=== PATIENT | female | born 1990 | race Caucasian/White ===

== ENCOUNTER 2019-02-17 12:02 | Emergency (ER) | payer BC, OTHER ==
[2019-02-17 12:10] VITALS: BP 132/87
[2019-02-17] MEDS ORDERED: PROCHLORPERAZINE EDISYLATE INJ 10 MG/2 ML VIAL IV ONE (12:24)
[2019-02-17] MEDS ORDERED: ACETAMINOPHEN 325 MG TABLET PO ONE (12:24)
[2019-02-17] MEDS ORDERED: DIPHENHYDRAMINE HCL 50 MG/ML VIAL IV ONE (12:24)
--- NOTE | 2019-02-17 12:28 | ER Document Report ---
ED Medical Screen (RME) - General Chief Complaint: Headache Stated Complaint: HEADACHE Time Seen by Provider: 02/17/19 12:24 Primary Care Provider: ODESSA LICEA MD [Primary Care Provider] - Follow up as needed TRAVEL OUTSIDE OF THE [place] IN LAST 30 DAYS: No - HPI Notes: 02/17/19 12:25 Patient is a 28-year-old female with a history of tension headaches who presents complaining of headache that started around 1030 or 11 AM this morning to the backside of her head which is where the only start. Patient states that the pain will then radiate around the sides in the top of her head thereafter. Patient states that this headache came with some blurriness in her vision, tingling of her arms bilaterally, and tingling around her lips. Patient states that the symptoms have since resolved. Patient states that she does have a history of tingling in her extremities, but the tingling on the lips is new for her which is what prompted her to get evaluated. She otherwise has no other concerns or complaints. Patient had an MRI a year ago which was unremarkable per pt. This this was not the worst headache of her life and did not start as a thunderclap. Denies any fever, head injury, neck pain, changes in speech/mentation/hearing, URI, sore throat, chest pain, palpitations, syncope, cough, shortness of breath, wheeze, dyspnea, abdominal pain, nausea/vomiting/doug rrhea, urinary retention, dysuria, hematuria, loss of control of bowel or bladder, muscle paralysis/weakness, or rash. will defer any imaging to main side provider if deemed necessary I have treated and performed a rapid initial assessment of this patient. A comprehensive ED assessment and evaluation of the patient, analysis of test results and completion of medical decision making process will be conducted by additional ED providers. PHYSICAL EXAMINATION: GENERAL: Well-appearing, well-nourished and in no acute distress. A&Ox4. Answers questions appropriately. HEAD: Atraumatic, normocephalic. Non-tender. EYES: Pupils equal round and reactive to light, extraocular movements intact, sclera anicteric, conjunctiva are normal. No nystagmus. ENT: EAC clear b/l. TM's intact b/l without erythema, fluid, or perforation. Nares patent and without discharge. oropharynx clear without exudates. No tonsilar hypertrophy or erythema. Moist mucous membranes. NECK: Normal range of motion, supple without lymphadenopathy. No rigidity/meningismus. No midline tenderness. LUNGS: Breath sounds clear to auscultation bilaterally and equal. No wheezes rales or rhonchi. HEART: Regular rate and rhythm without murmurs, rubs, gallops. ABDOMEN: Soft, nontender, nondistended abdomen. No guarding, no rebound. Normal bowel sounds present. No CVA tenderness bilaterally. Musculoskeletal: Ext b/l: FROM to passive/active. Strength 5+/5. No deficits noted. Extremities: No cyanosis, clubbing, or edema b/l. Peripheral pulses 2+. Capillary refill less than 2 seconds. NEUROLOGICAL: NIH 0. GCS 15. Cranial nerves grossly intact. Normal speech, normal gait. Normal sensory, motor exams. Reflexes 2+ b/l. MILADIS's negative. Pronator drift negative. Heel/flores, finger/nose wnl. PSYCH: Normal mood, normal affect. SKIN: Warm, Dry, normal turgor, no rashes or lesions noted. - Related Data Allergies/Adverse Reactions: codeine Allergy (Verified 07/05/17 15:58) rash Past Medical History - Social History Drug Abuse: None Pulmonary Medical History: Reports: Hx Bronchitis Renal/ Medical History: Denies: Hx Peritoneal Dialysis GI Medical History: Reports: Hx Gastroesophageal Reflux Disease Musculoskeltal Medical History: Reports Hx Musculoskeletal Deformity, Reports Hx Musculoskeletal Trauma Past Surgical History: Reports: Hx Oral Surgery - Immunizations Hx Diphtheria, Pertussis, Tetanus Vaccination: No History of Influenza Vaccine for 06/2017 - 11/2017 Season: Unknown Physical Exam - Vital signs Vitals: Temp Pulse Resp BP Pulse Ox 98.1 F 89 16 132/87 H 98 02/17/19 12:10 02/17/19 12:10 02/17/19 12:10 02/17/19 12:10 02/17/19 12:10 Course - Vital Signs Vital signs: Temp Pulse Resp BP Pulse Ox 98.1 F 89 16 132/87 H 98 02/17/19 12:10 02/17/19 12:10 02/17/19 12:10 02/17/19 12:10 02/17/19 12:10 Doctor's Discharge - Discharge Referrals: ODESSA LICEA MD [Primary Care Provider] - Follow up as needed
--- NOTE | 2019-02-17 12:53 | EKG REPORT ---
SEVERITY:- NORMAL ECG - SINUS RHYTHM : Confirmed by: Neymar Ozuna MD 17-Feb-2019 12:52:48
--- NOTE | 2019-02-17 14:48 | ER Document Report ---
ED General - General Chief Complaint: Headache Stated Complaint: HEADACHE Time Seen by Provider: 02/17/19 12:24 Primary Care Provider: ODESSA LICEA MD [Primary Care Provider] - Follow up as needed TRAVEL OUTSIDE OF THE [place] IN LAST 30 DAYS: No - HPI Notes: Patient is a 28-year-old female who presents to the emergency department for evaluation of headache, bilateral arm numbness, and perioral numbness. Started while she was at work. She was in between appointments with financial counseling here in the hospital. She states she does get tension headaches. She has had trouble with numbness in her upper extremities in the past, but not always necessarily associated with headaches. She is never had a perioral numbness before. She denied any associated nausea. She tried food and rest to see if they would help, they did not significantly help, so she presents the ED for further evaluation. She denies any fevers or sore throat. She states that when her headache was severe she did have some mild blurred vision, but this is resolved. She notes that her father of a brain aneurysm, but she had an MRI/MRA of her brain last year which was found to be normal. - Related Data Allergies/Adverse Reactions: codeine Allergy (Verified 07/05/17 15:58) rash Past Medical History - General Information source: Patient - Social History Smoking Status: Never Smoker Drug Abuse: None Family History: Arthritis, CAD, DM, Hyperlipidemia, Hypertension, Malignancy. denies: COPD, CVA, Thyroid Disfunction Patient has suicidal ideation: No Patient has homicidal ideation: No Pulmonary Medical History: Reports: Hx Bronchitis Renal/ Medical History: Denies: Hx Peritoneal Dialysis GI Medical History: Reports: Hx Gastroesophageal Reflux Disease Musculoskeletal Medical History: Reports Hx Musculoskeletal Trauma Past Surgical History: Reports: Hx Oral Surgery - Immunizations Hx Diphtheria, Pertussis, Tetanus Vaccination: No Review of Systems - Review of Systems Constitutional: No symptoms reported EENT: See HPI Cardiovascular: No symptoms reported Respiratory: No symptoms reported Gastrointestinal: No symptoms reported Genitourinary: No symptoms reported Musculoskeletal: See HPI Skin: No symptoms reported Neurological/Psychological: See HPI Physical Exam - Vital signs Vitals: Temp Pulse Resp BP Pulse Ox 98.1 F 89 16 132/87 H 98 02/17/19 12:10 02/17/19 12:10 02/17/19 12:10 02/17/19 12:10 02/17/19 12:10 - Notes Notes: Vital signs reviewed, please refer to chart. Head is normocephalic, atraumatic. Pupils equal round, reactive to light. Neck is supple without meningismus. Heart is regular rate and rhythm. Lungs are clear to auscultation bilaterally. Abdomen is soft, nontender, normoactive bowel sounds throughout. Extremities without cyanosis, clubbing. Posterior calves are nontender. Peripheral pulses are equal. Skin is warm and dry. Patient is awake, alert, oriented x3. Cranial nerves II - XII are grossly intact without focal neurological deficits. Strength is plus 5 out of 5 bilateral lower extremities. Sensation is intact. Reflexes symmetrical. Intact [id number], rapid alternating movements, [id number]. Course - Re-evaluation Re-evalutation: 02/17/19 14:45 Patient presents to the emergency department for evaluation. She was initially evaluated through triage. She was medicated with complete resolution of her symptoms. The patient has had an EMG for evaluation of her arm numbness, which she states is largely unremarkable. She was referred for possible MRI and further follow-up with neurology, but she did not pursue this. I explained to the patient that I suspect that all of her symptoms were secondary to tension. My most likely explanation for her perioral numbness with some mild hyperventilation associated with the onset of her severe headache. She states that all of her symptoms are currently resolved at this time. I will send her home with a mild muscle relaxer to see if this helps with occurrence of her headaches. She is encouraged to follow-up with her primary care physician, discuss possible referral back to neurology, and return to the ED with worsening or new concerning symptoms of any sort. - Vital Signs Vital signs: Temp Pulse Resp BP Pulse Ox 98.1 F 89 16 132/87 H 98 02/17/19 12:10 02/17/19 12:10 02/17/19 12:10 02/17/19 12:10 02/17/19 12:10 Discharge - Discharge Clinical Impression: Tension headache, Numbness of upper extremity, Perioral numbness Condition: Stable Disposition: HOME, SELF-CARE Instructions: Headache ([facility]) Additional Instructions: Rest. Take muscle relaxer as needed for tension headaches. Follow-up with your doctor in 1 to 2 weeks. You should consider pursuing a referral to neurology. Return to the emergency department with worsening or new concerning symptoms of any sort. Referrals: ODESSA LICEA MD [Primary Care Provider] - Follow up as needed
== END 2019-02-17 15:06 | disposition home or self-care (01) ==
LOC: ER 12:02
DX: G44.209 Tension-type headache, unspecified, not intractable (principal); R20.0 Anesthesia of skin; Z88.6 Allergy status to analgesic agent
CPT/HCPCS: 93005; 99284; 96374; 96375; 93010; J1200; J0780

== ENCOUNTER 2019-03-14 21:56 | Emergency (ER) | payer BC, OTHER ==
[2019-03-15 01:08] LABS: ABSOLUTE LYMPHOCYTES (AUTO) 2.4 10^3/uL (0.5-4.7); ABSOLUTE MONOCYTES (AUTO) 0.4 10^3/uL (0.1-1.4); ABSOLUTE NEUT (AUTO) 7.6 10^3/uL (1.7-8.2); BASOPHILS % (AUTO) 0.4 % (0-2); EOSINOPHILS % (AUTO) 0.1 % (0-6); HEMATOCRIT 45.5 % (36.0-47.0); HEMOGLOBIN 15.6 g/dL (12.0-15.5); LYMPHOCYTES % (AUTO) 22.8 % (13-45); MEAN CORPUSCULAR HEMOGLOBIN 31.5 pg (27.0-33.4); MEAN CORPUSCULAR HGB CONC 34.4 g/dL (32.0-36.0); MEAN CORPUSCULAR VOLUME 92 fl (80-97); MONOCYTES % (AUTO) 3.8 % (3-13); PLATELET COUNT 232 10^3/uL (150-450); RED BLOOD COUNT 4.96 10^6/uL (3.72-5.28); RED CELL DISTRIBUTION WIDTH 12.8 % (11.5-14.0); SEGMENTED NEUTROPHILS % (AUTO) 72.9 % (42-78); TOTAL CELLS COUNTED % (AUTO) 100 %; WHITE BLOOD COUNT 10.5 10^3/uL (4.0-10.5)
[2019-03-15 01:25] LABS: APPEARANCE,URINE CLEAR; BILIRUBIN,URINE NEGATIVE (NEGATIVE); COLOR,URINE YELLOW; GLUCOSE, URINE NEGATIVE (NEGATIVE); KETONES,URINE 25 mg/dL (NEGATIVE); LEUKOCYTE ESTERASE,URINE NEGATIVE (NEGATIVE); NITRITE,URINE NEGATIVE (NEGATIVE); PROTEIN,URINE NEGATIVE (NEGATIVE); UROBILINOGEN,URINE NEGATIVE mg/dL (<2.0)
--- NOTE | 2019-03-15 01:29 | ER Document Report ---
ED Psych Disorder / Suicide - General Chief Complaint: Anxiety Stated Complaint: HEART RACING Time Seen by Provider: 03/14/19 22:41 Primary Care Provider: ODESSA LICEA MD [Primary Care Provider] - Follow up as needed Mode of Arrival: Ambulatory Information source: Patient TRAVEL OUTSIDE OF THE [place] IN LAST 30 DAYS: No - HPI Patient complains to provider of: Other - Palpitation, anxiety. Onset: Yesterday Onset was: Sudden Quality of pain: No pain Severity: None Pain Level: Denies Similar symptoms previously: No Recently seen / treated by doctor: No - Related Data Allergies/Adverse Reactions: codeine Allergy (Verified 07/05/17 15:58) rash Past Medical History - Social History Smoking Status: Never Smoker Frequency of alcohol use: Social Drug Abuse: None Family History: Arthritis, CAD, DM, Hyperlipidemia, Hypertension, Malignancy. denies: COPD, CVA, Thyroid Disfunction Patient has suicidal ideation: No Patient has homicidal ideation: No Pulmonary Medical History: Reports: Hx Bronchitis Renal/ Medical History: Denies: Hx Peritoneal Dialysis GI Medical History: Reports: Hx Gastroesophageal Reflux Disease Musculoskeletal Medical History: Reports Hx Musculoskeletal Deformity, Reports Hx Musculoskeletal Trauma Past Surgical History: Reports: Hx Oral Surgery - Immunizations Hx Diphtheria, Pertussis, Tetanus Vaccination: No Review of Systems - Review of Systems Constitutional: No symptoms reported EENT: No symptoms reported Cardiovascular: No symptoms reported Respiratory: No symptoms reported Gastrointestinal: No symptoms reported Genitourinary: No symptoms reported Female Genitourinary: No symptoms reported Musculoskeletal: No symptoms reported Skin: No symptoms reported Hematologic/Lymphatic: No symptoms reported Neurological/Psychological: Anxiety. denies: Homicidal ideation, Suicidal ideation -: Yes All other systems reviewed and negative Physical Exam - Vital signs Vitals: Temp Pulse Resp BP Pulse Ox 98.1 F 81 18 121/72 98 03/14/19 22:10 03/14/19 22:10 03/14/19 22:10 03/14/19 22:10 03/14/19 22:10 Interpretation: Normal - General General appearance: Appears well, Alert - HEENT Head: Normocephalic, Atraumatic Eyes: Normal Pupils: PERRL - Respiratory Respiratory status: No respiratory distress Chest status: Nontender Breath sounds: Normal Chest palpation: Normal - Cardiovascular Rhythm: Regular Heart sounds: Normal auscultation Murmur: No - Abdominal Inspection: Normal Distension: No distension Bowel sounds: Normal Tenderness: Nontender Organomegaly: No organomegaly - Back Back: Normal, Nontender - Extremities General upper extremity: Normal inspection, Nontender, Normal color, Normal ROM, Normal temperature General lower extremity: Normal inspection, Nontender, Normal color, Normal ROM, Normal temperature, Normal weight bearing. No: Divina's sign - Neurological Neuro grossly intact: Yes Cognition: Normal Orientation: AAOx4 Liliana Coma Scale Eye Opening: Spontaneous Liliana Coma Scale Verbal: Oriented Liliana Coma Scale Motor: Obeys Commands Liliana Coma Scale Total: 15 Speech: Normal Motor strength normal: LUE, RUE, LLE, RLE Sensory: Normal - Psychological Associated symptoms: Normal affect, Normal mood - Skin Skin Temperature: Warm Skin Moisture: Dry Skin Color: Normal Course - Re-evaluation Re-evalutation: 03/15/19 03:00 Patient states she is feeling better and her anxiety has resolved. She wants to be discharged home. - Vital Signs Vital signs: Temp Pulse Resp BP Pulse Ox 97.8 F 78 18 105/73 99 03/15/19 03:18 03/15/19 03:18 03/15/19 03:18 03/15/19 03:18 03/15/19 03:18 - Laboratory Result Diagrams: 03/15/19 00:55 03/15/19 00:55 Laboratory results interpreted by me: 03/15/19 03/15/19 00:55 00:55 Hgb 15.6 H Urine Ketones 25 H - EKG Interpretation by Ct EKG shows normal: Sinus rhythm Rate: Normal Rhythm: NSR When compared to previous EKG there are: No significant change Additional EKG results interpreted by me: 03/15/19 01:40 No STEMI. Discharge - Discharge Clinical Impression: Panic attack, Panic attack as reaction to stress Condition: Stable Disposition: HOME, SELF-CARE Instructions: Panic Attack ([facility]) Additional Instructions: Please follow-up with your primary doctor on Saturday morning. Return to the emergency room if your condition worsens. Referrals: ODESSA LICEA MD [Primary Care Provider] - Follow up as needed
[2019-03-15 01:31] LABS: ALANINE AMINOTRANSFERASE 24 U/L (9-52); ALBUMIN 4.5 g/dL (3.5-5.0); ALKALINE PHOSPHATASE 75 U/L (38-126); ANION GAP 9 (5-19); ASPARTATE AMINO TRANSFERASE 26 U/L (14-36); BILIRUBIN,DIRECT 0.2 mg/dL (0.0-0.4); BILIRUBIN,TOTAL 0.9 mg/dL (0.2-1.3); BLOOD UREA NITROGEN 11 mg/dL (7-20); CALCIUM 9.6 mg/dL (8.4-10.2); CARBON DIOXIDE 26 mmol/L (22-30); CHLORIDE 104 mmol/L (98-107); GLUCOSE 97 mg/dL (75-110); SODIUM 138.9 mmol/L (137-145); TOTAL PROTEIN 7.1 g/dL (6.3-8.2)
[2019-03-15 02:30] LABS: URINE AMPHETAMINES SCREEN NEGATIVE; URINE BARBITURATES SCREEN NEGATIVE; URINE BENZODIAZEPINES SCREEN NEGATIVE; URINE COCAINE SCREEN NEGATIVE; URINE MARIJUANA (THC) SCREEN NEGATIVE; URINE METHADONE SCREEN NEGATIVE; URINE PHENCYCLIDINE SCREEN NEGATIVE
[2019-03-15 03:26] VITALS: BP 105/73
--- NOTE | 2019-03-15 09:49 | EKG REPORT ---
SEVERITY:- NORMAL ECG - SINUS RHYTHM : Confirmed by: Cristina Doe 15-Mar-2019 09:48:57
== END 2019-03-15 03:26 | disposition home or self-care (01) ==
LOC: ER 21:56
DX: F43.0 Acute stress reaction (principal); F41.9 Anxiety disorder, unspecified; Z88.6 Allergy status to analgesic agent
CPT/HCPCS: 36415; 80053; 80307; 81001; 81025; 84443; 85025; 93005; 93010; 99283

== ENCOUNTER → 2019-03-25 | Outpatient (CLI) | payer BC ==
--- NOTE | 2019-03-25 13:31 | RADIOLOGY REPORT (SQ) ---
EXAM DESCRIPTION: MRI CERVICAL SPINE WITHOUT COMPLETED DATE/TIME: 03/25/2019 1:18 pm REASON FOR STUDY: M54.12 RADICULOPATHY, CERVICAL REGION M54.12 RADICULOPATHY, CERVICAL REGION COMPARISON: None. TECHNIQUE: Sagittal and Axial imaging includes T1, T2, STIR and gradient echo sequences. LIMITATIONS: None. FINDINGS: ALIGNMENT: Normal. VERTEBRAE: Intact. BONE MARROW: Normal. No marrow replacement or reactive changes. DISCS: Normal. No significant abnormal signal or loss of height. HARDWARE: None in the spine. CORD AND BASE OF BRAIN: Normal in size and signal intensity. SOFT TISSUES: No soft tissue masses. C1-C2: No significant spinal stenosis. C2-C3: No significant spinal stenosis or exit foraminal stenosis. C3-C4: No significant spinal stenosis or exit foraminal stenosis. C4-C5: No significant spinal stenosis or exit foraminal stenosis. C5-C6: No significant spinal stenosis or exit foraminal stenosis. C6-C7: No significant spinal stenosis or exit foraminal stenosis. C7-T1: No significant spinal stenosis or exit foraminal stenosis. UPPER THORACIC: Incompletely imaged. No significant spinal stenosis or exit foraminal stenosis. OTHER: No other significant finding. IMPRESSION: NORMAL MRI CERVICAL SPINE. TECHNICAL DOCUMENTATION: JOB ID: [id number] [employer]- All Rights Reserved Reading location - IP/workstation name: [email or web address]
== END ==
LOC: RAD 12:16
PROVIDERS: ATTEND Internal Medicine
DX: M54.12 Radiculopathy, cervical region (principal); M54.2 Cervicalgia; R00.2 Palpitations
CPT/HCPCS: 72141

== ENCOUNTER → 2019-03-26 | Outpatient (CLI) | payer BC ==
--- NOTE | 2019-03-26 20:46 | XCELERA REPORT ---
[address] [address] Transthoracic Echocardiogram Report Name: MARIELY TAYLOR Age: 28 yrs Gender: Female : 1990 Patient Status: Outpatient Patient Location: RAD Study Date: 03/26/2019 01:12 PM Height: 60 in Weight: 132 lb BSA: 1.6 m2 Reason For Study: PALPATIONS Ordering Physician: ODESSA LICEA Performed By: Larisa Warren Interpretation Summary No significant post. pericardial effusion Aortic root not dilated. Aortic valve normal 3 cusps. noncor. cusp suggest mild prolapse, but no AR detected by color doppler. Mild mitral annular calcification. AML of MV is thickened and mod. prolapse but only trace MR, and small LA size. No MS, no PML prolapse. LV shows no hypertrophy, LVEF is normal at 58% but no biplane LVEF by nursing technician. Overall appears normal >55%.visually. Segmental wall motion abnormality in IVS and inferior wall is mild hypokinesis. No LV diastolic dysfunction. No LV enlargement. RH is normasl size, no TR sampled to derive RVSP to R/O pulm hypertension. Summary = mild thickened AML prolapse of the MV with trace MR physiological, and no LA enlargement. Mild hypokinesis of the IVS and Inferior wall. with visually normal LVEF. MMode/2D Measurements & Calculations RVDd: 2.9 cm LVIDd: 4.2 cm FS: 34.1 % Ao root diam: 2.8 cm IVSd: 0.81 cm LVIDs: 2.8 cm EDV(Teich): Ao root area: LVPWd: 1.1 cm 80.2 ml ESV(Teich): 6.4 cm2 29.4 ml LA dimension: 2.1 cm EF(Teich): 63.4 % LVLd ap4: 6.9 cm SV(MOD-sp4): EDV(MOD-sp4): 30.0 ml 53.0 ml LVLs ap4: 5.9 cm ESV(MOD-sp4): 23.0 ml EF(MOD-sp4): 56.6 % Doppler Measurements & Calculations MV E max mack: MV dec time: Ao V2 max: LV V1 max P.7 cm/sec 0.14 sec 97.7 cm/sec 2.7 mmHg MV A max mack: Ao max P.8 mmHg LV V1 max: 69.1 cm/sec 82.4 cm/sec MV E/A: 1.1 PA V2 max: 68.1 cm/sec PA max P.9 mmHg I WMSI = 1.44 % Normal = 56 Segments Size X - Cannot 2 - 4 - 1-2 small Interpret 1 - Normal Hypokinetic 3 - AkineticDyskinetic 3-5 moderate 5 - 6-14 large Aneurysmal 15-16 diffuse : ODESSA LICEA Andre
== END ==
LOC: RAD 12:50
PROVIDERS: ATTEND Internal Medicine
DX: M54.12 Radiculopathy, cervical region (principal); M54.2 Cervicalgia; R00.2 Palpitations
CPT/HCPCS: 93306

== ENCOUNTER → 2020-07-07 | Outpatient (CLI) | payer BC ==
--- NOTE | 2020-07-07 16:31 | RADIOLOGY REPORT (SQ) ---
EXAM DESCRIPTION: HYSTEROSALPINGOGRAM IMAGES COMPLETED DATE/TIME: 07/07/2020 4:10 pm REASON FOR STUDY: N97.9 FEMALE INFERTILITY, UNSPECIFIED N97.9 FEMALE INFERTILITY, UNSPECIFIED COMPARISON: None. PROCEDURE: PRE-PROCEDURE: Procedure was explained to the patient. She was told to expect cramping du ring the procedure, and possible spotting post procedure. PROCEDURE: The cervix was prepped in sterile fashion. Under direct visual inspection, the catheter c ould not be advanced into the lower uterine segment. TECHNIQUE: See above. FLUOROSCOPY TIME: None. LIMITATIONS: None. FINDINGS: None. IMPRESSION: Unsuccessful attempt at hysterosalpingogram due to cervical adhesion. COMMENT: Quality ID [id number]: Final reports for procedures using fluoroscopy that document radiation exp osure indices, or exposure time and number of fluorographic images (if radiation exposure indices are not available) TECHNICAL DOCUMENTATION: JOB ID: [id number] [employer]- All Rights Reserved Reading location - IP/workstation name: [email or web address]
== END ==
LOC: RAD 15:13
PROVIDERS: ATTEND Student in an Organized Health Care Education/Training Program
DX: N97.9 Female infertility, unspecified (principal); N88.1 Old laceration of cervix uteri; Z53.09 Procedure and treatment not carried out because of other contraindication
CPT/HCPCS: 74740